=== PATIENT | male | born 1990 | race Caucasian/White ===

== ENCOUNTER 2016-09-08 02:08 | Emergency (ER) | payer MEDICAID, OTHER ==
[~2016-09-08] VITALS: Ht 188 cm; Wt 97.3 kg
[~2016-09-08 02:08] MED LIST: Bupropion Hcl PO; CLON1PAT2 TOPICAL; HAL5 PO; LORA-303 PO; MIRT15TA6 PO; MIRT30TA6 PO; PRAZ1CAP2 PO
[2016-09-08 02:15] VITALS: BP 135/74; PULSE 112; RESP 18; O2SAT 97
--- NOTE | 2016-09-08 02:34 | ED.REPORT ---
HPI-Psychiatric Illness Date of Service Sep 08, 2016 ED Provider: Dr. Daniele Gordon M.D. A 26 year old male with a history of asthma, depression, suicidal ideation, PTSD , panic disorder, and paranoid schizophrenia with previous psych admissions presents to the ED with insomnia onset four days ago. The patient also reports increased intermittent suicidal ideation without a plan. He denies current suicidal ideation or homicidal ideation. The patient occasionally experiences auditory and visual hallucinations secondary to his schizophrenia. He is not currently on any medications and has had bad experiences with Prozac and Lorazepam in the past. The patient denies cough, nausea, vomiting, diarrhea, constipation, fever, or other somatic symptoms. He has had similar symptoms in the past. Nursing Notes Stated Complaint: MENTAL HEALTH Chief Complaint: Psychiatric Complaint Nursing Notes Reviewed: Yes Allergies: Coded Allergies: fluoxetine (Verified Allergy, Severe, suicidal, 09/08/16) Scheduled ([Bupropion Hcl]) 75 MG TABLET 75 MG PO DAILY Clonidine 0.2 mg/day Patch (Catapres TTS-2) 1 Each Patch 1 PATCH TOPICAL Q7D Haloperidol (Haloperidol) 5 Mg Tablet 5 MG PO HS Lorazepam (Ativan) 1 Mg Tablet 1 MG PO TID Mirtazapine (Mirtazapine) 15 Mg Tablet 15 MG PO HS Mirtazapine (Mirtazapine) 30 Mg Tablet 30 MG PO HS Prazosin (Prazosin) 1 Mg Capsule 1 MG PO HS Quetiapine Fumarate (Seroquel) 50 Mg Tablet 50 MG PO HS General Time Seen by MD: 02:34 Chief Complaint Other (Insomnia) Hx Obtained From: Patient Arrived By: Walk-in Onset Occurred: 4 days ago Symptom Duration: Since onset Severity: Current: No pain currently Severity: Maximum: No pain Pertinent Negative: Relieved by nothing Related History: Reports: Depression, Schizophrenia Immunizations: Unknown Recent Healthcare: No recent doctor visit Similar Sx Previous: Yes Risk-Psychiatric Illness Suicide Risk Stratification RF Statements: Risk factors reviewed Past Medical History Past Medical History Depression Hx of suicidal ideation with prior admission Paranoid schizophrenia PTSD Panic disorder without agoraphobia. Reports: Asthma Past Surgical History Knee surgery Nose surgery Family History noncontributory Smoking History Current Every Day Smoker, Heavy Tobacco Smoker Social History Alcohol Use: In recovery Drug Use: THC Other Social History: Good social support, Local resident Ambulatory Status Independent Review of Systems Constitutional: Denies: Fever Respiratory: Denies: Non-productive cough GI: Denies: Constipation, Diarrhea, Nausea, Vomiting Psychiatric: Reports: Hallucinations, auditory, Hallucinations, visual, Insomnia, Suicidal ideation (Intermittent, denies currently), Denies: Homicidal ideation Complete sys rev & neg: except as marked. Physical Exam Initial Vital Signs Vital Signs (First) Date Time Temp Pulse Resp B/P Pulse Ox O2 Delivery O2 Flow Rate FiO2 09/08/16 02:15 37.5 112 18 135/74 97 Room Air Initial VS: Reviewed Head / Eyes: Atraumatic, Normocephalic ENT: Conjunctiva normal, No scleral icterus Neck: Supple, Full range of motion Cardiovascular: Regular rate & rhythm, Heart sounds normal Abdomen / GI: Soft, Non-tender Skin: Warm, Dry, No cyanosis General/Constitutional: Awake, Alert, No acute distress Quiet with poor eye contact Neurologic: Oriented X3, Speech NL, No motor deficits, No sensory deficits Psychiatric: Not suicidal, Not homicidal Abnormal Mood/Affect: Positive: Depressed Respiratory / Chest: Breath sounds = bilat, No respiratory distress Wheezing / Retractions: Positive: Wheezing moderate (Bilaterally) Interpretation & Diagnostics Lab Results Interpretation Result Diagram: 09/08/16 0310 09/08/16 0310 Test 09/08/16 03:10 White Blood Count 9.8th/mm3 (3.8-10.1) Red Blood Count 4.89mil/mm3 (4.40-5.80) Hemoglobin 14.2g/dL (13.8-17.2) Hematocrit 43.6% (41.0-50.0) Mean Corpuscular Volume 89.2fL (81-100) Mean Corpuscular Hemoglobin 29.0pg (27.0-35.0) Mean Corpuscular Hemoglobin Concent 32.6% (32.0-37.0) Red Cell Distribution Width 14.9% (12.3-15.4) Platelet Count 256bil/L (150-400) Neutrophils (%) (Auto) 61.0% (40-74) Lymphocytes (%) (Auto) 26.8% (14-46) Monocytes (%) (Auto) 10.5% (4-12) Eosinophils (%) (Auto) 0.9% (0-5) Basophils (%) (Auto) 0.7% (0-3) Sodium Level 139mEq/L (134-144) Potassium Level 3.3mEq/L (3.5-5.2) Chloride Level 100mEq/L (97-108) Carbon Dioxide Level 24mmol/L (18-29) Blood Urea Nitrogen 7mg/dL (6-20) Creatinine 0.65mg/dL (0.76-1.27) Estimat Glomerular Filtration Rate 157mL/min (>59) Glucose Level 116mg/dL (60-99) Calcium Level 9.1mg/dL (8.5-10.1) Total Bilirubin 0.5mg/dL (0.0-1.2) Aspartate Amino Transf (AST/SGOT) 16U/L (0-50) Alanine Aminotransferase (ALT/SGPT) 11U/L (0-44) Alkaline Phosphatase 59U/L (25-150) Total Protein 7.5g/dL (6.4-8.4) Albumin 3.9g/dL (3.4-5.0) Thyroid Stimulating Hormone (TSH) 1.250uIU/mL (0.450-4.500) Hold Klein Top Tube Received (Received) Re-Eval/Medical Decision Med Decision/Clinical Course 26-year-old with schizophrenia and bipolar illness, presents for insomnia primarily. He noticed low-grade suicidal ideation intermittently and not at all at present. He is not homeless and has a friend here in support. He does not feel at risk for suicide or homicide. His hallucinations are only moderate and not actually present at this moment. He is not compliant with prescribed Haldol and other meds, which she denies even being prescribed. He was offered Seroquel which she appears not to be familiar with, and took a 50 mg dose for tonight. A prescription was written. Follow up with [facility]. Source of Hx: Old records Re-Evaluation/Progress : Time of Eval: 02:49 Patient Status: Condition improved Re-Evaluation/Progress Note: Discussed with patient lab results, diagnosis, and plan for discharge. Follow-up and return to the ER instructions given. Patient agrees with plan for care and all questions were addressed. Counseled Regarding: Diagnosis, Lab results, Need for follow-up, When/why to return to ED Discharge & Departure Shift Change Sign-Out Response to Therapy: Improved Impression: Primary Impression: Suicidal ideation Additional Impression: Psychosis Psychosis type: schizophrenia Schizophrenia type: paranoid schizophrenia Qualified Code: F20.0 - Paranoid schizophrenia Disposition: Home Discharge Condition All VS Reviewed: Yes Condition: Improved Patient Instructions: Bipolar Disorder (ED) Additional Instructions: Take Seroquel nightly to help control the hallucinations and help you sleep. Call [facility] tomorrow at [phone] Ask for same-day appointment to be seen tomorrow. It is located at [address] [place] [address]. You can also call the crisis line and [phone] at any time for contact with mental health resources. Return if you are feeling uncontrollably suicidal, or have any other new symptoms of concern. Usual asthma puffer as needed for wheeze and cough. Always use with a spacer. Referrals: OTHER,PHYSICIAN (PCP) [facility] Scribe Attestation Portions of this note were transcribed by Rekha Mane. I, Dr. Gordon, personally performed the history, physical exam, and medical decision-making; I reviewed and confirmed the accuracy of the information in the transcribed note. Signed by: Polly Benitez, 09/08/2016, 04:50 copies to: [facility] Daniele Gordon MD Sep 08, 2016 02:34 REKHA MANE Sep 08, 2016 02:52
[2016-09-08] MEDS ORDERED: QUET50TA PO (02:49)
[2016-09-08] MEDS ORDERED: _Albuterol-HFA 60 Puff Inhaler INHALATION PRN (02:50)
[2016-09-08 03:16] LABS: BASOPHILS % (AUTO) 0.7 % (0-3); EOSINOPHILS % (AUTO) 0.9 % (0-5); MONOCYTES % (AUTO) 10.5 % (4-12); Mean Corpuscular Volume 89.2 fL (81-100); Platelet Count 256 bil/L (150-400)
== END 2016-09-08 04:00 | disposition home or self-care (01) ==
LOC: SED 02:13
DX: R45.851 Suicidal ideations (principal); F20.0 Paranoid schizophrenia; F43.10 Post-traumatic stress disorder, unspecified; F17.210 Nicotine dependence, cigarettes, uncomplicated

== ENCOUNTER 2016-09-08 10:04 | Inpatient (IN) | payer MEDICAID, OTHER ==
[~2016-09-08] VITALS: Ht 177.8 cm; Wt 81.0 kg
[~2016-09-08 10:04] MED LIST changes: +QUET50TA PO
[2016-09-08 10:08] VITALS: BP 127/78; PULSE 90; RESP 18; O2SAT 98
--- NOTE | 2016-09-08 10:31 | ED.REPORT ---
HPI-Psychiatric Illness Date of Service Sep 08, 2016 ED Provider: Doc,Ed A 26 year old male with a history of bipolar disorder, OCD, depression, suicidal ideations, substance abuse, and asthma, who spent the night in the hospital last night, presents to the ED with suicidal ideations with no plan onset last night. He states that he would kill himself if he left the ED. Per brother, the patient has no access to firearms. The patient also reports recent problems with his energy level, having trouble relaxing or sleeping. Last night, he had 2 hours of sleep but normally gets 6-8 hours per night. He also reports feeling tension in his left shoulder. He does not currently have a psychiatrist but has sought psychiatric help in the past. Per brother, the patient has abused prescribed psychiatric drugs given in the past. Apart from the Seroquel given in the ED, the patient is not currently taking any medications. The patient smokes marijuana and does consume alcohol, but has not had any alcoholic drinks today. He has had knee and nose surgery in the past. He was overweight when he was younger. Nursing Notes Stated Complaint: MENTAL HEALTH Chief Complaint: Psychiatric Complaint Nursing Notes Reviewed: Yes Allergies: Coded Allergies: fluoxetine (Verified Allergy, Severe, suicidal, 09/08/16) Scheduled ([Bupropion Hcl]) 75 MG TABLET 75 MG PO DAILY Clonidine 0.2 mg/day Patch (Catapres TTS-2) 1 Each Patch 1 PATCH TOPICAL Q7D Haloperidol (Haloperidol) 5 Mg Tablet 5 MG PO HS Lorazepam (Ativan) 1 Mg Tablet 1 MG PO TID Mirtazapine (Mirtazapine) 15 Mg Tablet 15 MG PO HS Mirtazapine (Mirtazapine) 30 Mg Tablet 30 MG PO HS Prazosin (Prazosin) 1 Mg Capsule 1 MG PO HS Quetiapine Fumarate (Seroquel) 50 Mg Tablet 50 MG PO HS General Time Seen by MD: 10:31 Chief Complaint Suicidal ideation Hx Obtained From: Patient, Other family... (brother) Arrived By: Walk-in Onset Occurred: 13 - 16 hours ago Symptom Duration: Since onset Recent Healthcare: Recent doctor visit (Spent last night in the hospital) Similar Sx Previous: Yes Risk-Psychiatric Illness Suicide Risk Stratification RF Statements: Risk factors N/A Past Medical History Past Medical History Depression Hx of suicidal ideation with prior admission Paranoid schizophrenia PTSD Panic disorder without agoraphobia. OCD Reports: Asthma Past Surgical History Knee surgery Nose surgery Family History noncontributory Smoking History Current Every Day Smoker, Heavy Tobacco Smoker Social History Alcohol Use: In recovery Drug Use: THC Other Social History: Good social support, Local resident Ambulatory Status Independent Review of Systems Review of Systems Note: Problems with energy level. Difficulty relaxing and sleeping. Tension in left shoulder. Psychiatric: Reports: Suicidal ideation (no plan) Complete sys rev & neg: except as marked. Physical Exam Physical Exam Notes: Initial Vital Signs Vital Signs (First) Date Time Temp Pulse Resp B/P Pulse Ox O2 Delivery O2 Flow Rate FiO2 09/08/16 10:08 36.6 90 18 127/78 98 Initial VS: Reviewed General/Constitutional: Awake Abnormal Mood/Affect: Positive: Flat affect Abnormal Thinking / Perception: Positive: Suicidal, no plan (With intention, but no plan) Head / Eyes: Normocephalic, PERRL, EOMI ENT: Atraumatic, Mucous membranes moist Respiratory / Chest: Atraumatic, Breath sounds NL, Breath sounds = bilat, No respiratory distress, No rales, No rhonchi, No wheezing Cardiovascular: Heart rate NL, Regular rhythm, Heart sounds NL, No gallop, No murmurs, No rubs Abdomen: Atraumatic, No guarding, No rebound Skin: Atraumatic, Color NL, No rash, Warm, Dry Neck: Atraumatic, Full range of motion Back: Atraumatic, Full range of motion Upper Extremity / MS: Atraumatic, Full range of motion Wrist / Hand: Atraumatic, Full range of motion Lower Extremity / Pelvis / MS: Atraumatic, Full range of motion Ankle / Foot: Atraumatic, Full range of motion Re-Eval/Medical Decision Med Decision/Clinical Course Patient reports suicidal thoughts, this is second visit 24 hours, family is with him at the bedside due to concerns that he will elope from the ER. Initially he is cooperative and agreeable to admission and through the course of the day has become less and less cooperative. I feel this patient likely should have the [facility] evaluation and probable detainment for suicidal ideations and possible imminent danger to himself. There is transferred to Dr. sal Huizar pending the [facility] evaluation. Source of Hx: Old records Discharge & Departure Impression: Primary Impression: Suicidal ideation )( Condition at Discharge: Clear for psych facility Referrals: OTHER,PHYSICIAN (PCP) Care Transferred to: [facility] Transferred at: 15:45 Polly Attestation Portions of this note were transcribed by Kin Mack. I, Dr. Patricia, personally performed the history, physical exam, and medical decision-making; I reviewed and confirmed the accuracy of the information in the transcribed note. Signed by: Polly Valverde, 09/08/2016, 1538. Andrew Patricia DO Sep 08, 2016 10:31 Kin Mack Sep 08, 2016 10:49
[2016-09-08 19:08] VITALS: BP 132/81; PULSE 83; RESP 20; O2SAT 95
[2016-09-08 19:44] LABS: BASOPHILS % (AUTO) 0.8 % (0-3); MONOCYTES % (AUTO) 10.9 % (4-12); Mean Corpuscular Hemoglobin 29.5 pg (27.0-35.0); Mean Corpuscular Volume 89.1 fL (81-100); NEUTROPHILS % (AUTO) 55.6 % (40-74); Platelet Count 286 bil/L (150-400)
[2016-09-09 00:48] VITALS: BP 132/81; PULSE 83; RESP 20; O2SAT 95
[2016-09-09] MEDS ORDERED: Alum-Mag Hydrox-Simeth 30 mL Suspension PO PRN ×2 (01:00→15:00)
[2016-09-09] MEDS ORDERED: Magnesium Hydroxide 10 mL Oral Concentration PO PRN ×2 (01:00→15:00)
[2016-09-09] MEDS ORDERED: Benzocaine-Menthol Lozenge 2/Pkg PO PRN ×2 (01:00→15:00)
--- NOTE | 2016-09-09 03:12 | NUR ---
Admission Note Pt is a 26 y/o white male admitted on an SAE from [facility] ED for grave disability and danger to self. . Pt with a previous DX of Schizophrenia who present to the ED with his brother in law for the second time in 24 hours with concerns of increasing suicidal ideation. Pt endorses SI but was unable to verbalize a plan. Pt endorses auditory hallucinations which are persistent and reports people are blocking his thoughts, making it difficult for him to speak. In ED pts thoughts were disorganized, had difficulty tracking conversation, was seen laughing inappropriately. Pt reports multiple suicide attempts with last 10/2013 but would not give details. Pt was discharged from [facility] 01/31/16, has had 2 voluntary hospitalization and 1 SAE. Pt lives in a motor home on brother-in laws parents property and is cared for by pts sister. Is not currently on any medication and has not taken medication for the past 6 months. Pts last apt was at [facility] 03/09/16. (See med reconciliation for last med list). Pt UDS + for THC, BAL is 0 Labs unremarkable. Pt reportedly in recovery from ETOH.
--- NOTE | 2016-09-09 05:16 | NUR ---
nursing, nights, 11-7 s/o- has appeared to sleep after 0130 during q 15 minute assessments. a- no apparent distress. p- monitor behavior/emotional state, quality, times and amount of sleep, use and effect of medication. mj
[2016-09-09] MEDS: LORazepam 1 mg Tablet PO PRN (09:00)
[2016-09-09 11:46] VITALS: BP 136/71; PULSE 95; RESP 16
--- NOTE | 2016-09-09 14:00 | NUR ---
Nursing Day Shift Patient having difficulty verbalizing thoughts. Pt reports anxiety and was given Ativan 1mg. When asked about hallucinations, pt states "could I do something first", then went to the window looked outside suspiciously before stating "no". Declines depression and SI/HI. Pt compliant with medications and cooperative with care.
[2016-09-09] MEDS ORDERED: LORazepam 1 mg Tablet PO PRN (15:00)
[2016-09-09] MEDS ORDERED: LORazepam 0.5 mg Tablet PO PRN (15:00)
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
--- NOTE | 2016-09-09 17:11 | NUR ---
Digital Commentator./ c.m. S.:"I have best mood that I have had in awhile." O.: met with pt. to complete Psychosocial and Treatment plan and goals. Pt. is SAE 72 hrs hold as and DTS. He had multiple hospitalizations in the past. His last hospitalization was here in January 2016. He is not connected with mental health services at this time. He was off his meds for a few months. He will be homeless at time of discharge. He lived on his xzvdrjj[place]zf[place][id number] property but he said that he won't be able to go back there. He had poor sleep, poor appetite, increased depression, AH/VH, paranoid/delusional thoughts and SI with a plan. Today he continued having SI but he was able to contract for safety. He denied HI - "they are not thoughts, just a body sensation." He admitted having AH "a little"- "like a radio". He has VH - "seeing darkness in my [id number] eyes. Just his black hole eyes." He had paranoid/delusional thoughts. He talked about getting messages from TV, books and magazines. He said that TV sent him 20% "good messages and 80% bad messages. He denied depression or anxiety at this time. He complained about feeling restless or unsettled. "It's like there is something that I have to do but I don't know what." A.: pt. is cooperative, pleasant, looks restless, internally preoccupied and responding on internal stimuli. P.: monitor behavior, monitor for safety, engage pt. in the unit activities; follow care plan.
--- NOTE | 2016-09-09 21:10 | NUR ---
OBSERVATIONS 0900 TO 2130 Pt was isolative most of the shift aside from meals. Pt was on edge after lunch and expressed some feelings of anxiety and frustration surrounding pt nicotine lozenge. Once pt was given the lozenge anxiety and frustration diminished and pt returned to room. Maintained Q15 safety checks as directed.
--- NOTE | 2016-09-10 01:44 | NUR ---
Pt asleep when justowriter operator arrived, arousable for HS meds, declined snack and went back to sleep. In no acute distress. Addendum: 09/10/16 at 0504 by JONEL FLORENCE RN Pt slept throughout the night with uninterrupted sleep. Slept approx 10.5 hours.Monitoring ongoing
[2016-09-10] MEDS: LORazepam 1 mg Tablet PO PRN (08:24)
[2016-09-10 10:30] VITALS: BP 127/77; PULSE 100; RESP 16
--- NOTE | 2016-09-10 14:09 | PCM.PNPSY ---
Subjective Date of Service Sep 10, 2016 Subjective I spent 30 minutes both reviewing his treatment plan and providing supportive and educational psychotherapy. I spent more than 50% of the time counseling the patient. I reviewed the treatment plan with the patient and discussed options available including the potential risks, benefits and side effects. Bunny reports severely high anxiety. The Staff reports that he has been isolative and is not participating well in one-to-one unit and group activities. He slept 10 hours. He denies medication side effects. Patient was able to identify his medications and what they were used to treat. He appeared to understand the need for medications by the questions he asked during our discussion. Current Medications Current Medications Haloperidol 5 mg DAILY PO Last administered on 09/10/16 08:24; Admin Dose 5 MG; Start 09/09/16 at 15:00 Lorazepam 1 mg Q4H PRN PO Last administered on 09/10/16 08:24; Admin Dose 1 MG ; Start 09/09/16 at 01:00 Mirtazapine 15 mg HS PO Last administered on 09/09/16 21:22; Admin Dose 15 MG; Start 09/09/16 at 21:00 Nicotine 1 patch Q24H TOPICAL Last administered on 09/10/16 08:24; Admin Dose 1 PATCH; Start 09/09/16 at 01:08 Nicotine Polacrilex 2 mg Q4H PRN BUCCAL Last administered on 09/08/16 22:27; Admin Dose 2 MG; Start 09/08/16 at 17:40; Stop 09/09/16 at 01:08; Status DC Nicotine Polacrilex 2 mg Q4H PRN BUCCAL Last administered on 09/10/16 08:27; Admin Dose 2 MG; Start 09/09/16 at 01:00 Quetiapine Fumarate 25 mg ONCE PO Last administered on 09/08/16 19:07; Admin Dose 25 MG; Start 09/08/16 at 18:15 Mental Status Exam Appearance: Neat/well groomed Attitude: Pleasant, Cooperative Behavior: No unusual behavior Affect: Well Modulated/Appropriate Mood: Dysthymic, Depressed, Anxious, Fearful Thought Process/Associations: Logical/Sequential, Goal Directed Speech Production: Normal Speech Rate: Normal Speech Articulation: Normal Thought Content: Negativistic, Somatic preoccupation, Suspicious Danger to Self/Suicidal Ideati: None Danger to Others: None Delusions: Paranoid (Endorses) Hallucinations: Auditory (Endorses) Consciousness: Hyper-vigilant Orientation: Person, Place, Date, Situation Memory: Grossly Intact Estimate Intellectual Function: Average Basis for IQ estimate: Awareness current events, Word use/vocabulary, Educational history Attention/Concentration & Cogn: Impaired Cognitive Testing Method: Abstract Reasoning during interview Insight: Limited Judgement: Limited Result Diagram: 09/08/16191409/08/161914 Mental Health Plan Patient is a 26-year-old, white male, who has been struggling with symptoms of schizophrenia for the past seven years. For unclear reasons, he stopped taking his medications and has not gone to his outpatient followup. They have, at [facility], dropped his case. In the past he had responded well to Haldol, Remeron, and Ativan. He is describing multiple symptoms of psychosis and is demonstrating disorganized thought and reports auditory hallucinations. He is feeling extreme anxiety and panic and seems to be self-medicating with alcohol and marijuana. Client was admitted on a 72-hour involuntary treatment hold. [place] DIAGNOSIS: [place] I. 1. Schizophrenia. 2. Posttraumatic stress disorder 3. alcohol abuse 4 cannabis abuse [place] II. Defer. [place] III. None. [place] IV Moderate. [place] V. Current Global Assessment of Functioning equal to 35. Medications Treatments Patient is being provided with a high degree of safety through the structure and active adult engagement. We will focus on developing improved coping skills and identifying stressors that may have led to current episode. We will attempt to: Integrate into therapeutic groups, milieu and individual therapy. Maintain in a closely monitored and structured unit Provide low-stimulation environment Obtain collateral data to assist in treatment planning Assess degree of lability of affect and impulse control Complete safety plan Establish a consistent sleep pattern Medication effective in stabilization of mood and/or thought process Reduce the risk of imminent harm to self and/or others by providing a safe environment Tolerates medication without side effects Patient will be on the following psychiatric medications: Haldol 5 mg at bedtime Remeron 50 mg at bedtime Ativan 0.5 3 times a day Labs: Education: Educate patient about recreational drug use as an etiology Evaluate iatrogenic drug use as an etiology Address patient's legal status Patient is on a 72 hour involuntary treatment hold for suicidal ideation. Patient will be given the opportunity to talk to her educational/development assistant and the structural drafter Sarbjit Singleton MD Sep 10, 2016 14:09
--- NOTE | 2016-09-10 14:28 | NUR ---
NURSING NOTE DAY SHIFT Mood= "not too good" Affect= anxious, isolative Behavior= visible in the DR at start of shift; social w/select peers in the a.m. and attended community meeting but then retreated to his room and rested in bed for the remainder of the day other than to come out for meals. Pt. coughing off and on in the a.m., reports it is likely due to having quit smoking in recent days. Thought processes= pt quite anxious at start of shift, requested a PRN. Pt. had difficulty identifying the source of his anxiety w/this travel writer but said "I get anxious all the time-- all the time-- it's just something that happens." Denied /. PRNs Ativan 1 mg @ 08:24
[2016-09-10] MEDS: hydrOXYzine Pamoate 25 mg Capsule PO PRN (17:28)
--- NOTE | 2016-09-10 17:51 | NUR ---
Maternity Nurse./ c.m. S.:"I feel tired and aggravated and I don't know why." O.: met with pt. in his room. He was in bed after dinner. He spent a lot of time today in his room. He complained about feeling tired. He continued having SI but he was able to contract for safety. He denied HI. He continued having AH. He rated depression at 5/10 and anxiety at 7/10. He agreed to come to the Nursing station if he didn't feel well or safe. A.: pt. is isolative, cooperative, quiet, has a flat affect and a soft voice. P.: monitor behavior, continue engaging pt. in a unit activities, follow care plan.
--- NOTE | 2016-09-10 20:29 | NUR ---
Observations 0900 to 1930 Pt affect and mood was flat, guarded, anxious and isolative at times. Pt attended community meeting. Pt speech and eye contact was ok. Pt was minimally social with staff and select peers when approached. Pt attended meals in D.R. and ate 100% of his meals. Pt maintained behavior throughout the shift. Pt was polite, pleasant and cooperative. Pt was in his room most of the afternoon sleeping. Pt took a shower and attended to ADL's. Pt was observed every 15 minutes throughout the shift as ordered. Pt is currently watching TV with peers.
--- NOTE | 2016-09-11 04:41 | NUR ---
NURS NOC 12H Mood: Anxious, depressed Affect: Appropriate Behavior: Pt up in day room, watching television with fellow pts at start of shift. Pt slept from 2129 to present. Thought Process: Linear, logical Nursing Note/PRN: zolpidem 5 mg at 2015
[2016-09-11] MEDS: LORazepam 1 mg Tablet PO PRN ×2 (10:10→18:26)
[2016-09-11 11:00] VITALS: BP 92/60; PULSE 92; RESP 14
--- NOTE | 2016-09-11 13:52 | NUR ---
nurses note 7am-7pm S)"I know I shouldn't be asking but can I have something for anxiety" O)pt reports anxiety 04/17 this am, hesitant to ask for needs with statements "I shouldn't bother you" encouraged to talk to staff and report any discomfort or problems, anxiety decreased with PRN to 01/15 which is comfortable for the patient, denies SI, no AH/VH, though states he thinks he might have some delusional thinking at times, ate meals joined community meetings, sat with peers and watched TV, goal today is "to stay positive, help my family,and stay where I am safe" good eye contact, pleasant on approach and calmer with antianxiety medication A) anxious, pleasant and cooperative, denies SI P) monitor effectiveness of medications, court on Sunday
--- NOTE | 2016-09-11 15:03 | NUR ---
Observations 0900 to 1500 Pt affect and mood was flat, anxious and isolative at times. Pt attended community meeting and set a daily goal. Pt stated that he is feeling feeling very anxious and is unable to rate his mood. Pt stated that he wants to be more positive. Pt speech and eye contact was ok. Pt was minimally social with staff and select peers when approached. Pt attended meals in D.R. and ate 100% of his meals. Pt maintained behavior throughout the shift. Pt was polite, pleasant and cooperative. Pt was in his room most of the afternoon sleeping. Pt was observed every 15 minutes throughout the shift as ordered.
--- NOTE | 2016-09-11 15:35 | PCM.PNPSY ---
Subjective Date of Service Sep 11, 2016 Subjective The patient reports the treatment team that he "wants to give you a hug but that would be weird. It feels like I am finally able to let go of the past and get into counseling." The patient reports that he feels the medications are "doing a fantastic job." He denies any side effects. Tremor noted, but no dystonia or cogwheeling on physical exam. Sleep: 8.5+ hours Appetite: "Getting back to normal." Suicidal and homicidal ideation: Reports some passive suicidal ideation this morning but denies plan or intent. Auditory hallucinations/Visual hallucinations: "They are gone." Other Psychotic Symptoms: The patient appears to have significant thought disorganization. Anxiety: "Earlier this morning, none now." Depression: "Worried about home." Current Medications Current Medications Mirtazapine 15 mg HS PO Last administered on 09/10/16t 20:15; Admin Dose 15 MG; Start 09/09/16 at 21:00 Mental Status Exam Vital Signs Vital Signs Date Time Temp Pulse Resp B/P Pulse Ox O2 Delivery O2 Flow Rate FiO2 09/11/16 11:00 36.5 92 14 92/60 Appearance: Neat/well groomed Attitude: Pleasant, Cooperative Behavior: No unusual behavior Affect: Well Modulated/Appropriate Mood: Dysthymic, Anxious Thought Process/Associations: Goal Directed (generally), Loose, Tangential Speech Production: Paucity Speech Rate: Lags/Latency Speech Articulation: Normal Thought Content: Negativistic, Somatic preoccupation, Suspicious Danger to Self/Suicidal Ideati: None Danger to Others: None Delusions: Paranoid (Endorses) Hallucinations: Auditory (Denies), Visual (Denies) Consciousness: Hyper-vigilant Orientation: Person, Place, Date, Situation Memory: Short Term Memory (Impaired) Estimate Intellectual Function: Average Basis for IQ estimate: Awareness current events, Word use/vocabulary, Educational history Attention/Concentration & Cogn: Impaired Cognitive Testing Method: Abstract Reasoning during interview Insight: Limited Judgement: Limited Result Diagram: 09/08/16191409/08/161914 Mental Health Plan Patient is a 26-year-old, white male, who has been struggling with symptoms of schizophrenia for the past seven years. The patient stopped taking his medications and has not gone to his outpatient followup. [facility] has dropped his case. In the past he had responded well to Haldol, Remeron, and Ativan. He is describing multiple symptoms of psychosis and is demonstrating disorganized thought and reports auditory hallucinations. He is feeling extreme anxiety and panic and seems to be self-medicating with alcohol and marijuana. The patient was admitted on a 72-hour involuntary treatment hold. He appears to be responding to the above mentioned treatment but is experiencing mild tremor which either may be familial or EPS related. [place] I. 1. Schizophrenia. 2. Posttraumatic stress disorder 3. Alcohol use disorder 4. Cannabis use disorder [place] II. Defer. [place] III. None acute. [place] IV Moderate. [place] V. Current Global Assessment of Functioning equal to 35. Medications Mirtazapine 15 mg nightly Haloperidol 5 mg by mouth daily Hydroxyzine 50 mg every 4 hours when necessary anxiety or agitation Lorazepam 1 mg every 4 hours when necessary anxiety or agitation Zolpidem 5-10 mg nightly when necessary insomnia Treatments 1. The patient is admitted to the inpatient unit and will be provided a safe and secure environment. 2. The patient is denying current active suicidality and is not in need of a one-to-one at this time. He is agreeing to notify us should he have any acute suicidal or homicidal thoughts. 3. The patient is encouraged to participate with group and milieu activities. 4. The patient will be seen by the treatment team on a daily basis to assess symptoms, side effects and response to treatment. 5. Haloperidol will be changed to 5 mg at bedtime. 6. Benztropine 1 mg at bedtime will be added for EPS. 7. Anticipated length of stay is 7-10 days. Jeremiah Juarez MD Sep 11, 2016 15:35
[2016-09-11 15:36] VITALS: BP 124/91; PULSE 90; RESP 17
--- NOTE | 2016-09-11 21:21 | NUR ---
Behavior Pt is cooperative and appropriate. Pt states, "I'll take my meds now" Reviewed medications with pt. Pt verbalized understanding E: Will monitor for effectiveness.
--- NOTE | 2016-09-12 02:08 | NUR ---
Observations 1900 to 0700 pt was in his room when my shift started. Pt had two visitors last night and they all seemed to enjoy the visit. Pt attended wrap up group and had some snacks before returning to his room for the night. Pt first appeared asleep at 22:00 and was observed every 15 minutes through the night as directed.
[2016-09-12] MEDS: LORazepam 1 mg Tablet PO PRN ×3 (08:31→20:25)
--- NOTE | 2016-09-12 15:19 | NUR ---
Medical Dermatologist./ c.m. S.:"I cleared house today in the morning and I wrote something. I want to read it to you." O.: met with pt. and MD together to check on pt.'s progress. He read a short poem that he made in the morning about his flashback of his father's . He talked about his father briefly after that. 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 I'm on a right medications." He "slept fantastic" last night. He denied SI/HI, denied AH/VH today, rated depression at 3/10 and anxiety at 6-7/10. He was in and out of his room playing cards with peers. He talked to his sister and he was told that he would be able to go back home if he is taking meds. He wants to follow up with [facility] after discharge from here. A.: pt. is cooperative, pleasant, looks a little brighter today, more social with peers. P.: monitor behavior, possible court tomorrow, work on Safety plan and follow up; follow care plan.
--- NOTE | 2016-09-12 15:38 | NUR ---
nursing note 7am-7pm S)"I feel like I released 23years of stuff in one letter I feel so light" O) pt c/o anxiety earlier this am given PRN with relief, states becomes paranoid with the anxiety, social on unit attended community meeting, played cards with peers, brighter affect, denies VH/AH A) decreasing anxiety, social, compliant P) court tomorrow, monitor medication effectiveness
--- NOTE | 2016-09-12 17:21 | NUR ---
Observations [id number] Pt was in the dining area upon start of shift. He continues to appear anxious. He spent more time in the common areas today. He shared with this promotion writer his desire to have [facility] help him once discharged. Pt did not attend group activities, but did walk halls at times. He is not overly social with peers, but friendly and polite upon approach. Pt attended all meals, eating 100%. He was observed every 15 minutes of shift as directed.
--- NOTE | 2016-09-12 22:16 | PCM.PNPSY ---
Subjective Date of Service Sep 12, 2016 Subjective The patient states today, "I cleared house this morning and I have something to share.." Patient reports memory of being 1 y.o. and his father dying from a heart attack and his cries summoning his mother. He reported that this was one of the most important events in his life. He is denying current side effects. Patient reports still could use a few days to further stabilize and establish outpatient plan. Reports max weight was 408 pounds at age 11 but reports weight under control for the last 10-12 years. Sleep: "fantastic" 8+ hours Appetite: More of an appetite. Suicidal and homicidal ideation: denies Auditory hallucinations:Last the day before last, hearing tapping noises. Visual hallucinations: reports recently experiencing "room shifts." Other Psychotic Symptoms: mild thought disorganization Anxiety: -01/15 Depression: 09/15, "really not that bad." Current Medications Current Medications Benztropine Mesylate 1 mg HS PO Last administered on 09/12/16 20:22; Admin Dose 1 MG; Start 09/11/16 at 21:00 Haloperidol 5 mg HS PO Last administered on 09/12/16 20:23; Admin Dose 5 MG; Start 09/11/16 at 21:00 Mental Status Exam Appearance: Neat/well groomed Attitude: Pleasant, Cooperative Behavior: No unusual behavior Affect: Well Modulated/Appropriate Mood: Dysthymic, Anxious Thought Process/Associations: Goal Directed (generally), Tangential Speech Production: Paucity Speech Rate: Lags/Latency (but less than yesterday) Speech Articulation: Normal Thought Content: Somatic preoccupation Danger to Self/Suicidal Ideati: None Danger to Others: None Hallucinations: Auditory (Denies), Visual (Denies) Consciousness: Hyper-vigilant Orientation: Person, Place, Date, Situation Memory: Short Term Memory (Impaired) Estimate Intellectual Function: Average Basis for IQ estimate: Awareness current events, Word use/vocabulary, Educational history Attention/Concentration & Cogn: Impaired Insight: Limited Judgement: Limited Result Diagram: 09/08/16191409/08/161914 Mental Health Plan Patient is a 26-year-old, white male, who has been struggling with symptoms of schizophrenia for the past seven years. The patient stopped taking his medications and has not gone to his outpatient followup. [facility] has dropped his case. In the past he had responded well to Haldol, Remeron, and Ativan. He is describing multiple symptoms of psychosis and is demonstrating disorganized thought and reports auditory hallucinations. On admission, he reported feeling extreme anxiety and panic and seemed to be self-medicating with alcohol and marijuana. The patient was admitted on a 72-hour involuntary treatment hold. He appears to be responding to the above mentioned treatment but is still showing some thought disorganization. [place] Ne[place] I. 1. Schizophrenia. 2. Posttraumatic stress disorder 3. Alcohol use disorder 4. Cannabis use disorder [place] II. Defer. [place] III. None acute. [place] IV Moderate. [place] V. Current Global Assessment of Functioning equal to 35. Medications Mirtazapine 15 mg nightly Haloperidol 5 mg by mouth daily Hydroxyzine 50 mg every 4 hours when necessary anxiety or agitation Lorazepam 1 mg every 4 hours when necessary anxiety or agitation Zolpidem 5-10 mg nightly when necessary insomnia Treatments 1. The patient is admitted to the inpatient unit and will be provided a safe and secure environment. 2. The patient is denying current active suicidality and is not in need of a one-to-one at this time. He is agreeing to notify us should he have any acute suicidal or homicidal thoughts. 3. The patient is encouraged to participate with group and milieu activities. 4. The patient will be seen by the treatment team on a daily basis to assess symptoms, side effects and response to treatment. 5. Continue current treatment 6. Anticipated length of stay is 7-10 days. Jeremiah Juarez MD Sep 12, 2016 22:16 Jeremiah Juarez MD Sep 12, 2016 22:16
--- NOTE | 2016-09-13 01:23 | NUR ---
Observations 1900 to 0700 pt was out and about more than the previous night. Pt was social with other Pt's. Pt was polite and cooperative. Pt first appeared asleep at 21:45 and was observed every 15 minutes through the night as directed.
--- NOTE | 2016-09-13 05:23 | NUR ---
Nursing Note [id number] Pt affect improved and pt noted socializing with peers in milieu. Pt up for meals and attended sandra group and snack. Upon assessment pt denied depression, SI, and anxiety. Pt maintained good eye contact and answered questions appropriately. Pt complain with HS meds and PRN Ativan 1mg given per request at HS. Pt noted asleep 2145 with 8 hr uninterrupted sleep noted. Q15 min safety checks done per protocol. no distrewss noted, WC sleep, safety, behavior
[2016-09-13] MEDS: LORazepam 1 mg Tablet PO PRN (07:44)
[2016-09-13 10:36] VITALS: BP 133/75; PULSE 99; RESP 16
--- NOTE | 2016-09-13 14:08 | NUR ---
Nursing Note [id number] Behavior, Anxiety S/O: Pt reported anxiety at 0744. Ativan 1 mg given. Pt has poor appetite. VS stable. Later in the morning pt stated he is anxious about medication changes. Pt tearful stating he has been feeling better & d/n understand why medications have been changed. Pt has used Ativan 1 mg 3 times in the past 24 hours. Staff talked with pt & able to calm pt down. A: Pt has visible s/sx of increasing anxiety. P: Provide supportive environment. Monitor medications & effects.
[2016-09-13] MEDS ORDERED: LORazepam 0.5 mg Tablet PO PRN (15:00)
--- NOTE | 2016-09-13 17:01 | PCM.PNPSY ---
Subjective Date of Service Sep 13, 2016 Subjective The patient's engaged in treatment team and reported that he had a stuffy nose for several days but it appeared to be getting better. He denied cough sore throat or other symptoms. He reported that he would like to have treatment through [facility] on a biweekly or weekly basis. He also stated that he started to read the Bible and plans to go to sabianist to help center him. Of note, the patient declined to her shirt for the evaluation with the treatment team. We discussed the difficulty of discharging him when he is using lorazepam 2-3 times per day. We discussed decreasing the as needed dose determine whether an increase in haloperidol was needed. The patient was agreeable to this plan. The patient denies side effects. Sleep: "Fantastic" Appetite: "Average" Suicidal and homicidal ideation: Denies Auditory hallucinations/Visual hallucinations: Denies Other Psychotic Symptoms: Some thought disorganization and euphoria Anxiety: "A little this morning" Depression: Denies Current Medications Current Medications Benztropine Mesylate 1 mg HS PO Last administered on 09/12/16 20:22; Admin Dose 1 MG; Start 09/11/16 at 21:00 Haloperidol 5 mg HS PO Last administered on 09/12/16 20:23; Admin Dose 5 MG; Start 09/11/16 at 21:00 Lorazepam 0.5 mg Q6 PRN PO Last administered on 09/13/16 15:21; Admin Dose 0.5 MG; Start 09/13/16 at 15:00 Mental Status Exam Vital Signs Vital Signs Date Time Temp Pulse Resp B/P Pulse Ox O2 Delivery O2 Flow Rate FiO2 09/13/16 10:36 36.4 99 16 133/75 Appearance: Neat/well groomed Attitude: Pleasant, Cooperative Behavior: No unusual behavior Affect: Well Modulated/Appropriate Mood: Dysthymic, Anxious Thought Process/Associations: Goal Directed (generally), Tangential Speech Production: Normal Speech Rate: Normal Speech Articulation: Normal Thought Content: Somatic preoccupation, Perseveration Danger to Self/Suicidal Ideati: None Danger to Others: None Hallucinations: Auditory (Denies), Visual (Denies) Consciousness: Hyper-vigilant Orientation: Person, Place, Date, Situation Memory: Short Term Memory (Impaired) Estimate Intellectual Function: Average Basis for IQ estimate: Awareness current events, Word use/vocabulary, Educational history Attention/Concentration & Cogn: Impaired Insight: Limited Judgement: Limited Result Diagram: 09/08/16191409/08/161914 Mental Health Plan Patient is a 26-year-old, white male, who has been struggling with symptoms of schizophrenia for the past seven years. The patient stopped taking his medications and has not gone to his outpatient followup. [facility] has dropped his case. In the past he had responded well to Haldol, Remeron, and Ativan. He is describing multiple symptoms of psychosis and is demonstrating disorganized thought and reports auditory hallucinations. On admission, he reported feeling extreme anxiety and panic and seemed to be self-medicating with alcohol and marijuana. The patient was admitted on a 72-hour involuntary treatment hold. He appears to be responding to the above mentioned treatment but is still showing some thought disorganization. We discussed needing to reduce his use of benzodiazepines to determine whether he needs an increase in haloperidol. [place] I. 1. Schizophrenia. 2. Posttraumatic stress disorder 3. Alcohol use disorder 4. Cannabis use disorder [place] II. Defer. [place] III. None acute. [place] IV Moderate. [place] V. Current Global Assessment of Functioning equal to 35. Medications Mirtazapine 15 mg nightly Haloperidol 5 mg by mouth daily Hydroxyzine 50 mg every 4 hours when necessary anxiety or agitation Lorazepam 1 mg every 4 hours when necessary anxiety or agitation Zolpidem 5-10 mg nightly when necessary insomnia Treatments 1. The patient is admitted to the inpatient unit and will be provided a safe and secure environment. 2. The patient is denying current active suicidality and is not in need of a one-to-one at this time. He is agreeing to notify us should he have any acute suicidal or homicidal thoughts. 3. The patient is encouraged to participate with group and milieu activities. 4. The patient will be seen by the treatment team on a daily basis to assess symptoms, side effects and response to treatment. 5. Reduce lorazepam to 0.5 mg every 4 hours when necessary anxiety. 6. Anticipated length of stay is 7-10 days. Jeremiah Juarze MD Sep 13, 2016 17:01
--- NOTE | 2016-09-13 18:49 | NUR ---
[employer] Lead/Counselor: S/O: Patient slept 8.5 hours last night as per staff. He denies S/I and H/I. He denies auditory and visual hallucinations. Depression is 0/10 and he stated that he had a little anxiety earlier this morning. Patient's family is okay with him coming back to the home upon discharge. A: Patient is cooperative, anxious, tangential, limited insight, limited judgment. P: Follow care plan, coordinate out-patient providers.
--- NOTE | 2016-09-14 03:19 | NUR ---
Nursing Note [id number] Pt up in milieu upon arrival to unit. Pt noted socializing and watching tv in milieu. Pt up for sandra group and sandra snack. Pt appeared more guarded, with little eye contact. Affect flat and pt unwilling or unable to answer or rate his anxiety, depression and SI. Pt only stated"I hope he lets me out of here soon". pt appeared agitated and requested ambien to help him sleep. Pt appeared asleep 2215. Q15 min safety checks done per protocol, no distress noted. Pt currently asleep, continuing care monitoring sleep, safety, behavior.
[2016-09-14 09:20] VITALS: BP 124/82; PULSE 110; RESP 16
--- NOTE | 2016-09-14 15:56 | NUR ---
Nursing Dayshift: S: "I'm going to talk to my cabbage salter today." O: Patient made the above subjective for his goal. He did discuss tomorrow's hearing with the public health staff nurse this afternoon. Has been up and out of his room much of the shift. Smiles on approach. Rates his mood for today at a 9/10. Eating well at meals. Shannon from [facility] called with d/c f/u information for patient. Will include on discharge instructions. A: Brighter. More interactive. P: CPOC. Monitor mood and behavior.
--- NOTE | 2016-09-14 18:05 | NUR ---
Observations [id number] Pt was asleep upon start of shift. Pt stated to this physician underwriter that "I' am so ready to go home." Pt appeared anxious regarding discharge. He did attend groups and meals, eating 100%. Pt also stated during group, "You know what? I don't feel broken anymore." Pt watched TV in the evening and was social with peers upon interaction. Pt spent less time in his room today then in previous days, but did take a few naps. Pt made a card for both his sister and his nephew. Pt was observed every 15 minutes of shift as directed.
[2016-09-14] MEDS: hydrOXYzine Pamoate 25 mg Capsule PO PRN (21:11)
--- NOTE | 2016-09-14 23:33 | PCM.PNPSY ---
Subjective Date of Service Sep 14, 2016 Subjective The patient reports today that he "feels like today is a gift." He reports that he plans to stay on his [id number] property in a trailer. We discussed the potential advantages and disadvantages to an LRO and the patient was agreeable. He denied side effects and wished the discontinuation of ativan. Sleep: 8.5 hours Appetite: "normal" Suicidal and homicidal ideation: denies Auditory hallucinations/Visual hallucinations: denies Other Psychotic Symptoms: denies paranoia Anxiety: "working on controlling my anxiety." Depression: "yes & no, starting to work past what was making me depressed." Current Medications Current Medications Lorazepam 0.5 mg Q6 PRN PO Last administered on 09/13/16t 15:21; Admin Dose 0.5 MG; Start 09/13/16 at 15:00 Mental Status Exam Appearance: Neat/well groomed Attitude: Pleasant, Cooperative Behavior: No unusual behavior Affect: Well Modulated/Appropriate Mood: Euphoric (mildly) Thought Process/Associations: Goal Directed (generally) Speech Production: Normal Speech Rate: Normal Speech Articulation: Normal Thought Content: Somatic preoccupation, Perseveration Danger to Self/Suicidal Ideati: None Danger to Others: None Hallucinations: Auditory (Denies), Visual (Denies) Consciousness: Hyper-vigilant Orientation: Person, Place, Date, Situation Memory: Short Term Memory (Impaired) Estimate Intellectual Function: Average Basis for IQ estimate: Awareness current events, Word use/vocabulary, Educational history Attention/Concentration & Cogn: Impaired Insight: Limited Judgement: Limited Result Diagram: 09/08/16191409/08/161914 Mental Health Plan Patient is a 26-year-old, white male, who has been struggling with symptoms of schizophrenia for the past seven years. The patient stopped taking his medications and has not gone to his outpatient followup. [facility] has dropped his case. In the past he had responded well to Haldol, Remeron, and Ativan. He is describing multiple symptoms of psychosis and is demonstrating disorganized thought and reports auditory hallucinations. On admission, he reported feeling extreme anxiety and panic and seemed to be self-medicating with alcohol and marijuana. The patient was admitted on a 72-hour involuntary treatment hold. He appears to be responding to the above mentioned treatment but is still showing some thought disorganization. We discussed needing to reduce his use of benzodiazepines to determine whether he needs an increase in haloperidol and he requested discontinuing lorazepam. The patient, for now, is agreeable to a LRO. [place] I. 1. Schizophrenia. 2. Posttraumatic stress disorder 3. Alcohol use disorder 4. Cannabis use disorder [place] II. Defer. [place] III. None acute. [place] IV Moderate. [place] V. Current Global Assessment of Functioning equal to 35. Medications Mirtazapine 15 mg nightly Haloperidol 5 mg by mouth daily Hydroxyzine 50 mg every 4 hours when necessary anxiety or agitation Lorazepam 1 mg every 4 hours when necessary anxiety or agitation Zolpidem 5-10 mg nightly when necessary insomnia Treatments 1. The patient is admitted to the inpatient unit and will be provided a safe and secure environment. 2. The patient is denying current active suicidality and is not in need of a one-to-one at this time. He is agreeing to notify us should he have any acute suicidal or homicidal thoughts. 3. The patient is encouraged to participate with group and milieu activities. 4. The patient will be seen by the treatment team on a daily basis to assess symptoms, side effects and response to treatment. 5. Discontinue lorazepam per patient request. 6. Anticipated length of stay is 1-3 days. Jeremiah Juarez MD Sep 14, 2016 19:24
--- NOTE | 2016-09-15 05:37 | NUR ---
nursing, nights, s/o- has appeared to sleep after 2244 during q 15 minute assessments. a- no apparent distress. Expected discharge after court today p- monitor behavior/emotional state, quality, times and amount of sleep, use and effect of medication.
[2016-09-15] MEDS: hydrOXYzine Pamoate 25 mg Capsule PO PRN (09:30)
[2016-09-15 10:20] VITALS: BP 122/81; PULSE 83; RESP 18
--- NOTE | 2016-09-15 10:56 | PCM.DIMED ---
Discharge Instructions Date of Service Sep 15, 2016 Dates of Hospitalization Sep 08, 2016 at 23:47 Discharge Diagnosis Discharge Diagnosis [place] I. 1. Schizophrenia, chronic paranoid type. 2. Posttraumatic stress disorder 3. Alcohol use disorder 4. Cannabis use disorder [place] II. Defer. [place] III. None acute. [place] IV Moderate. [place] V. Current Global Assessment of Functioning equal to 45. Diet No restrictions Activity No restrictions Patient Instructions Should you have any thoughts of harming yourself or others, please call the crisis line, your provider, 911, or go to the nearest Emergency Department. Do not change or discontinue your medications without discussing with your provider. You have been given a prescription for 30 days supply of your medication Follow-up plan Psychiatric Intake [facility] Intake on 09/19/16 at 10:00am [place] [address] [place] [id number] Jeremiah Juarez MD Sep 15, 2016 10:56
[2016-09-15] MEDS ORDERED: HAL5 PO (11:03)
[2016-09-15] MEDS ORDERED: BENZ1TAB7 PO (11:03)
[2016-09-15] MEDS ORDERED: HYDR-3797 PO (11:03)
[2016-09-15] MEDS ORDERED: MIRT15TA6 PO (11:03)
[2016-09-15] MEDS ORDERED: ZLP5T PO (11:03)
--- NOTE | 2016-09-15 12:26 | NUR ---
Nursing Discharge Note: Patient cooperative with discharge process. Acknowledges understanding of d/c instructions and has a copy with them upon leaving unit at 1215. Belongings accounted for and with patient. Prescriptions faxed to patients pharmacy at [facility]. Patient denies harmful thoughts and hallucinations at this time.
--- NOTE | 2016-09-15 15:00 | PCM.DC.MED ---
Discharge Summary Date of Service Sep 15, 2016 Dates of Hospitalization Date of Hospital Admission Sep 08, 2016 at 23:47 Date of Discharge: Sep 15, 2016 Providers: Admitting Physician: Sarbjit Singleton MD Primary Care Physician: Other,Physician Attending Physician: Sarbjit Singleton MD Diagnosis at Time of Discharge Diagnosis at Time of Discharge [place] I. 1. Schizophrenia, chronic paranoid type. 2. Posttraumatic stress disorder 3. Alcohol use disorder 4. Cannabis use disorder [place] II. Defer. [place] III. None acute. [place] IV Moderate. [place] V. Current Global Assessment of Functioning equal to 45. Brief History Per Dr. Singleton's initial history and physical: IDENTIFICATION: The patient is a 26-year-old, single, white male. He is on Social Security Disability for schizophrenia. He lives in [place]. REASON FOR ADMISSION: Client admitted on a 72-hour involuntary treatment hold for suicidal ideation and psychotic symptoms. SUMMARY OF PRESENT ILLNESS: Client presents today for evaluation and treatment of psychosis, anxiety, and suicidal ideation. I met with him for a 60-minute evaluation and reviewed course and records kept by [facility]. The patient's main issue is schizophrenia with acute psychosis. Co-occurring issues are resultant feelings of suicidal ideation and panic. The condition is chronic. It has been present for the past seven years. At present, it is of a high intensity, manifesting with psychotic symptoms of auditory hallucinations, symptoms of PTSD including an exaggerated startle response, intrusive recall of traumatic events, and a tendency to try to avoid stimuli of previous trauma. Client had been recently admitted to us in January of last year for an almost identical presentation. He came to the ER on September 08, 2016, complained of suicidal ideation or auditory hallucinations. The ER doctors were able to treat him and get him to [facility] on September 09, 2016. Went to [facility], saw them, and they sent him back to the ER where he was detained and is currently admitted. In reviewing his course, for unclear reasons, he has stopped all of his meds for the past six months. His case at [facility] was closed. He is using alcohol and marijuana. He describes multiple symptoms of depression with poor sleep, interest, guilt, energy, and now suicidal ideation. He has a plan to use a gun to kill himself, although he does not have access to a gun. He is reporting auditory hallucinations of a derogatory nature, thought blocking, and has multiple sabianism delusions. When client was on our unit last year he stabilized on a combination of Haldol,Remeron, and Ativan. Hospital Course The patient was started on a combination of Haldol 5 mg daily, Remeron 15 h.s., and Ativan 0.5 t.i.d. to target symptoms of psychosis and posttraumatic stress disorder. Although initially disorganized and somewhat euphoric, he responded quickly to medications. The patient was concerned about the use of lorazepam and so was tapered off and used hydroxyzine with good results. As the patient was experiencing daytime sedation, haloperidol was moved to bedtime with good results. He exhibited no abnormal movements but did have a significant tremor and so was treated with benztropine 1 mg at bedtime with good results. The patient was agreeable to a less restrictive order and suicidal discharged to the care of his family with follow-up with [facility]. At the time of discharge, the patient was reporting his mood was "really good." Sleep was reported as "great," 8+ hours per staff. Appetite was reported as "normal." He denied anxiety or depression. He denied auditory or visual hallucinations and any thought, intent or plan of hurting himself or others. He denied medication side effects. Exam Vital Signs (Last) Date Time Temp Pulse Resp B/P Pulse Ox O2 Delivery O2 Flow Rate FiO2 09/15/16 10:20 36.4 83 18 122/81 09/09/16 00:48 95 Room Air Exam Discharge Mental Status Exam Appearance: Neat/well groomed Attitude: Pleasant, Cooperative Behavior: No unusual behavior Affect: Well Modulated/Appropriate Mood: "Great" Thought Process/Associations: Goal Directed Speech Production: Normal Speech Rate: Normal Speech Articulation: Normal Thought Content: No unusual content Danger to Self/Suicidal Ideation: None Danger to Others: None Hallucinations: Auditory (Denies), Visual (Denies) Consciousness: Alert Orientation: Person, Place, Date, Situation Memory: Short Term Memory fair Estimate Intellectual Function: Average Basis for IQ estimate: Awareness current events, Word use/vocabulary, Educational history Attention/Concentration & Cognition: Fair Insight: Improving Judgement: Good Physical Examination: AIMS Score 0; No dystonia or cogwheeling Test 09/08/16 19:15 White Blood Count 10.0th/mm3 (3.8-10.1) Red Blood Count 4.78mil/mm3 (4.40-5.80) Hemoglobin 14.1g/dL (13.8-17.2) Hematocrit 42.6% (41.0-50.0) Mean Corpuscular Volume 89.1fL (81-100) Mean Corpuscular Hemoglobin 29.5pg (27.0-35.0) Mean Corpuscular Hemoglobin Concent 33.1% (32.0-37.0) Red Cell Distribution Width 14.8% (12.3-15.4) Platelet Count 286bil/L (150-400) Neutrophils (%) (Auto) 55.6% (40-74) Lymphocytes (%) (Auto) 30.4% (14-46) Monocytes (%) (Auto) 10.9% (4-12) Eosinophils (%) (Auto) 2.0% (0-5) Basophils (%) (Auto) 0.8% (0-3) Sodium Level 138mEq/L (134-144) Potassium Level 3.6mEq/L (3.5-5.2) Chloride Level 101mEq/L (97-108) Carbon Dioxide Level 25mmol/L (18-29) Blood Urea Nitrogen 6mg/dL (6-20) Creatinine 0.54mg/dL (0.76-1.27) Estimat Glomerular Filtration Rate 194mL/min (>59) Glucose Level 106mg/dL (60-99) Calcium Level 9.2mg/dL (8.5-10.1) Total Bilirubin 0.6mg/dL (0.0-1.2) Aspartate Amino Transf (AST/SGOT) 17U/L (0-50) Alanine Aminotransferase (ALT/SGPT) 12U/L (0-44) Alkaline Phosphatase 59U/L (25-150) Total Protein 7.6g/dL (6.4-8.4) Albumin 3.9g/dL (3.4-5.0) Thyroid Stimulating Hormone (TSH) 2.080uIU/mL (0.450-4.500) Hold Klein Top Tube Received (Received) Alcohol, Quantitative < 10mg/dL (0-10) Discharge Medications Discharge Medications Benztropine Mesylate (Benztropine Mesylate) 1 Mg Tablet 1 MG PO HS Prescribed by: TYELR JUAREZ MD Haloperidol (Haloperidol) 5 Mg Tablet 5 MG PO HS Prescribed by: TYLER JUAREZ MD Mirtazapine (Mirtazapine) 15 Mg Tablet 15 MG PO HS Prescribed by: TYLER JUAREZ MD As needed Hydroxyzine Pamoate (HydrOXYzine Pamoate) 25 Mg Capsule 50 MG PO BID PRN PRN anxiety/agitation/insomnia Prescribed by: TYLER JUAREZ MD Zolpidem (Ambien) 5 Mg Tablet 5 MG PO HS PRN PRN Insomnia Prescribed by: TYLER JUAREZ MD Followup Plan Disposition: No indication for further long term at this time, patient released from hold on a 90 day less restrictive order and will be residing with his family. The patient verbally consented to take the prescribed medications. The patient verbally expressed understanding of the risks, benefits, alternative treatment options, and risks of not taking the prescribed medication. The patient verbally expressed understanding of the medication instructions, that he will adhere to the prescribed medication, and that he will go to all aftercare scheduled appointments. Follow-up plan Psychiatric Intake [facility] on 09/19/16 at 10:00am [facility] [address] [address] Discharge Diet: No restrictions Discharge Activity: No restrictions Patient Instructions Should you have any thoughts of harming yourself or others, please call the crisis line, your provider, 911, or go to the nearest Emergency Department. Do not change or discontinue your medications without discussing with your provider. You have been given a prescription for 30 days supply of your medication Tyler Juarez MD Sep 15, 2016 15:00
== END 2016-09-15 12:15 | disposition home or self-care (01) | DRG 885 ==
LOC: SED 10:04 → MHC 23:47
PROVIDERS: ADMIT Psychiatry & Neurology Psychiatry; ATTEND Psychiatry & Neurology Psychiatry
DX: F20.0 Paranoid schizophrenia (principal); R45.851 Suicidal ideations; Z91.19 Patient's noncompliance with other medical treatment and regimen; F12.10 Cannabis abuse, uncomplicated; F17.210 Nicotine dependence, cigarettes, uncomplicated; F43.10 Post-traumatic stress disorder, unspecified; F10.10 Alcohol abuse, uncomplicated

== ENCOUNTER 2016-09-17 21:43 | Emergency (ER) | payer MEDICAID, OTHER ==
[~2016-09-17] VITALS: Ht 182.9 cm; Wt 79.5 kg
[~2016-09-17 21:43] MED LIST changes: +BENZ1TAB7 PO; -Bupropion Hcl PO; -CLON1PAT2 TOPICAL; +HYDR-3797 PO; -LORA-303 PO; -MIRT30TA6 PO; -PRAZ1CAP2 PO; -QUET50TA PO; +ZLP5T PO
--- NOTE | 2016-09-17 21:45 | ED.REPORT ---
HPI-Psychiatric Illness Date of Service Sep 17, 2016 ED Provider: Mario De Leon MD Patient is a 26 year old male with a history of paranoid schizophrenia, depression, PTSD, panic disorder, alcohol abuse, suicidal ideations with prior suicide attempt and psychiatric admissions who presents to the ED via PD after he made inappropriate statements to his brother this evening. The content of these statements is unclear, with the patient simply stating that he is "tired" . He reports that his brother brought him to the ED tonight but he is unable to clarify why. His brother reportedly brought to the patient to the ED for psychiatric evaluation, but he refused to get out of the car. His brother therefore called Police, which escorted him to the ED. Patient resisted transport but was not aggressive. Police report that he was inappropriate, confused, and that he could not care for himself. Patient denies suicidal or homicidal ideations per police. Patient is unable to provide any meaningful history at this time. Patient was most recently admitted to the [facility] at [facility] from09/08-09/15/2016 for suicidal ideations and acute psychosis, as which time he was discharge on psychiatric medications and with an intake appointment at [facility]. Prior to that time he had not taken any psychiatric medications for 6 months. Nursing Notes Stated Complaint: PSYCH EVAL Nursing Notes Reviewed: Yes Allergies: Coded Allergies: fluoxetine (Verified Allergy, Severe, suicidal, 09/08/16) Scheduled Benztropine Mesylate (Benztropine Mesylate) 1 Mg Tablet 1 MG PO HS Haloperidol (Haloperidol) 5 Mg Tablet 5 MG PO HS Mirtazapine (Mirtazapine) 15 Mg Tablet 15 MG PO HS Scheduled PRN Hydroxyzine Pamoate (HydrOXYzine Pamoate) 25 Mg Capsule 50 MG PO BID PRN PRN anxiety/agitation/insomnia Zolpidem (Ambien) 5 Mg Tablet 5 MG PO HS PRN PRN Insomnia General Time Seen by : 21:50 Chief Complaint Bizarre behavior Hx Obtained From: Police Unable to Obtain Hx: Uncooperative, Mental status Arrived By: Police, Wheelchair Onset Occurred: 1 - 4 hours ago Symptom Duration: Since onset Recent Healthcare: Recent hospitalization Similar Sx Previous: Yes Risk-Psychiatric Illness Suicide Risk Stratification Suicide Risk Factors - Adult: : Alcohol use: Previous attempt: Prior psych admission: Substance abuseNo: Access to firearms RF Statements: Risk factors reviewed Past Medical History Past Medical History Depression Hx of suicidal ideation with prior admission and attempt via hanging in 2015 Paranoid schizophrenia PTSD Panic disorder without agoraphobia. OCD Reports: Asthma Past Surgical History Knee surgery Nose surgery Family History noncontributory Smoking History Current Every Day Smoker, Heavy Tobacco Smoker Social History Alcohol Use: In recovery Drug Use: THC Other Social History: Good social support, Local resident Ambulatory Status Independent Review of Systems Unable to Obtain ROS Uncooperative, Mental status Psychiatric: Denies: Homicidal ideation, Suicidal ideation Physical Exam Initial Vital Signs Vital Signs (First) Date Time Temp Pulse Resp B/P Pulse Ox O2 Delivery O2 Flow Rate FiO2 09/17/16 21:58 36.7 100 16 137/90 100 Room Air Initial VS: Reviewed, Vital signs abnormal Head / Eyes: Atraumatic, Normocephalic, PERRL ENT: Conjunctiva normal, No scleral icterus Neck: Supple, Full range of motion Respiratory: Breath sounds normal, Clear to auscultation, No respiratory distress Cardiovascular: Regular rate & rhythm, Heart sounds normal Abdomen / GI: Soft, Non-tender Extremities: Vascular intact, Neuro intact Skin: Warm, Dry, No cyanosis General/Constitutional: Awake, Alert, No acute distress Neurologic: Oriented X3, Speech NL constant repetative leg movements Psychiatric: Not suicidal, Not homicidal Abnormal Mood/Affect: Positive: Flat affect Prolonged latency when answering questions. Inappropriate answers to questions. Interpretation & Diagnostics Lab Results Interpretation Result Diagram: 09/18/16 0349 09/18/16 0349 Test 09/18/16 01:34 09/18/16 03:49 Hold Urine Received (Received) White Blood Count 12.0th/mm3 (3.8-10.1) Red Blood Count 4.72mil/mm3 (4.40-5.80) Hemoglobin 13.6g/dL (13.8-17.2) Hematocrit 42.0% (41.0-50.0) Mean Corpuscular Volume 89.0fL (81-100) Mean Corpuscular Hemoglobin 28.8pg (27.0-35.0) Mean Corpuscular Hemoglobin Concent 32.4% (32.0-37.0) Red Cell Distribution Width 14.4% (12.3-15.4) Platelet Count 315bil/L (150-400) Neutrophils (%) (Auto) 60.3% (40-74) Lymphocytes (%) (Auto) 27.3% (14-46) Monocytes (%) (Auto) 9.6% (4-12) Eosinophils (%) (Auto) 2.1% (0-5) Basophils (%) (Auto) 0.4% (0-3) Sodium Level 139mEq/L (134-144) Potassium Level 3.3mEq/L (3.5-5.2) Chloride Level 99mEq/L (97-108) Carbon Dioxide Level 27mmol/L (18-29) Blood Urea Nitrogen 5mg/dL (6-20) Creatinine 0.60mg/dL (0.76-1.27) Estimat Glomerular Filtration Rate 172mL/min (>59) Glucose Level 107mg/dL (60-99) Calcium Level 8.8mg/dL (8.5-10.1) Total Bilirubin 0.5mg/dL (0.0-1.2) Aspartate Amino Transf (AST/SGOT) 14U/L (0-50) Alanine Aminotransferase (ALT/SGPT) 13U/L (0-44) Alkaline Phosphatase 59U/L (25-150) Total Protein 7.0g/dL (6.4-8.4) Albumin 3.8g/dL (3.4-5.0) Thyroid Stimulating Hormone (TSH) 1.820uIU/mL (0.450-4.500) Hold Klein Top Tube Received (Received) Acetaminophen Level < 15.0ug/mL Rx (10-25) Lab values outside NL range: no clinical significance. Re-Eval/Medical Decision Med Decision/Clinical Course 26-year-old male who was recently discharged from the hospital here on new medications. Per his brother he has not been able to care for himself and has been acting inappropriate, please see the history of present illness above. He was minimally cooperative, and no useful information was obtained from interviewing him. He became somewhat agitated and was given Ativan and Haldol. Labs were done for medical clearance. His care is being turned over change of shift now to Dr. Art Sharma. Source of Hx: Old records Re-Evaluation/Progress : Time of Eval: 04:35 Re-Evaluation/Progress Note: Patient continues to sleep comfortably in the ED. Discharge & Departure Shift Change Sign-Out Patient Care Transferred: Yes Discussed Complaint(s): Yes Laboratory Evaluation: Back, reviewed by me Additonal Information: Awaiting METALS SALES REPRESENTATIVE evaluation Impression: Primary Impression: Acute situational disturbance Referrals: OTHER,PHYSICIAN (PCP) Care Transferred to: Dr. Briceno Care Transferred at: 06:00 Polly Attestation Portions of this note were transcribed by Nola Senior. I, Dr. De Leon personally performed the history, physical exam and medical decision-making; I reviewed and confirmed the accuracy of the information in the transcribed note. Signed by: Polly Rodriguez, 09/17/2016 0514 copies to: FADI,PHYSICIAN Mario De Leon MD Sep 17, 2016 21:45 Nola Senior Sep 17, 2016 21:52
[2016-09-17 21:58] VITALS: BP 137/90; PULSE 100; RESP 16; O2SAT 100
[2016-09-18] MEDS ORDERED: LORazepam 2 mg Tablet ONE (01:58)
[2016-09-18] MEDS ORDERED: diphenhydrAMINE 25 mg Capsule PO ONE (01:59)
[2016-09-18 02:28] VITALS: BP 128/82; PULSE 86; RESP 16; O2SAT 99
[2016-09-18 04:16] LABS: BASOPHILS % (AUTO) 0.4 % (0-3); EOSINOPHILS % (AUTO) 2.1 % (0-5); MONOCYTES % (AUTO) 9.6 % (4-12); Mean Corpuscular Hemoglobin 28.8 pg (27.0-35.0); NEUTROPHILS % (AUTO) 60.3 % (40-74); Platelet Count 315 bil/L (150-400)
[2016-09-18 06:32] VITALS: BP 130/79; PULSE 108; RESP 16; O2SAT 100
[2016-09-18] MEDS ORDERED: LORazepam 0.5 mg Tablet PO ONE (11:10)
[2016-09-18 11:45] VITALS: BP 105/61; PULSE 104; RESP 20; O2SAT 100
[2016-09-18] MEDS ORDERED: KLO1T PO (13:49)
--- NOTE | 2016-09-18 20:45 | CONS ---
[address] [address] CONSULTATION REPORT PATIENT: MARIFER HERNANDEZ : 1990 MR#: [id number] ADMIT: 09/17/2016 JOB ID: [id number] DATE OF SERVICE: 09/18/2016 IDENTIFICATION: The patient is a 26-year-old, single, white male. He is on social security disability for schizophrenia and lives in [place]. REASON FOR CONSULTATION: Client to the ED per his brother concerned about the patient acting oddly. ED consult recommended for evaluation and recommendations. HISTORY OF PRESENT ILLNESS: The patient presented to the ED via police department after he made inappropriate statements to his brother the following evening. The contents of these statements were unclear with the patient stating that he is tired. He reported that his brother brought him to the ED. He refused to get out of the car, his brother called the police and the police escorted him to the emergency department. The patient resisted transport but was not aggressive. Police reported that he was inappropriate, confused and that he could not care for himself. When I met with the patient, he stated that he had not been taking his medications since discharge (Haldol, Remeron and Cogentin). He stated that he has continued to use marijuana. He denied suicidal or homicidal ideation. He denied psychiatric review of systems for depression, kevon, or psychosis. He is highly anxious and for unclear reasons is not taking his medications and is not following up with his outpatient appointments. MENTAL STATUS EXAMINATION: Client lying on hospital mattress. He had good eye contact. His behavior was somewhat withdrawn but otherwise calm. His attitude was cooperative and pleasant. His speech was normal rate, rhythm. Mood was anxious. Affect congruent with no emotional liability. Thought process: Client is able to relate a coherent history. He is able to appreciate simple abstractions. His thought process is goal-oriented and logical. He denies ideas of reference. He does not appear to be responding to internal stimuli. Thought content was significant for themes of feeling anxious and not knowing what to do. He denied delusions of a paranoid, persecutory, grandiose or confucianism nature. He denied auditory hallucinations. He is alert and oriented to person, place, and date. Memory and concentration were mildly impaired. Insight and judgment were mildly impaired. Impulse control was highly contained. He has a difficult time handling impulses of fear. Reality testing intact. Competence to handle current stressors appears to be at baseline. VITAL SIGNS: Within normal limits. LABS: CBC, liver function, electrolytes within normal limits. Urine tox positive for THC. ASSESSMENT: The patient is a 26-year-old, white male who has been struggling with symptoms of schizophrenia for the past seven years. For unclear reasons, he has stopped taking his medications and has not gone to outpatient followup. When he does take Haldol, Remeron and Ativan, he seems to do quite well. Since recent discharge from our unit, he reported to me that he is taking no medications and has not gone to get these medications filled. He does smoke marijuana daily and throughout the day whenever he can get it. He is denying symptoms of psychosis at this time, and did not have disorganized thought. He is feeling extreme anxiety and panic and seems to be self-medicating with a combination of alcohol and marijuana. DIAGNOSIS: 1. Schizophrenia. 2. Posttraumatic stress disorder. 3. Alcohol abuse. 4. Marijuana abuse. DIAGNOSIS: [place] IDefer. [place] IIINone. [place] IVModerate. [place] VCurrent GAF equal to 45. PLAN: Recommend client take medication as prescribed. I talked with Dr. Ashley, the ED doctor, and she agreed to write him for a one week supply benzodiazepine. Client has an appointment with [facility] tomorrow Sunday. I encouraged him to continue Haldol 5 at night, Remeron 30 at night and start Klonopin at 1 mg per day. Client to be discharged back to home today. RECOMMEND: 1. Recommend client to refrain from recreational drugs and alcohol while taking psychiatric medications. 2. Recommend client not change psychiatric medications and take as prescribed unless notified by a physician.
== END 2016-09-18 14:20 | disposition home or self-care (01) ==
LOC: SED 21:43
DX: F43.0 Acute stress reaction (principal); F20.0 Paranoid schizophrenia; F41.9 Anxiety disorder, unspecified; F12.20 Cannabis dependence, uncomplicated; J45.909 Unspecified asthma, uncomplicated; F17.200 Nicotine dependence, unspecified, uncomplicated; Z91.14 Patient's other noncompliance with medication regimen; Z88.8 Allergy status to other drugs, medicaments and biological substances
CPT/HCPCS: 36415; 80053; 82075; 84443; 85025; 99284; G0480

== ENCOUNTER 2016-10-19 12:47 | Emergency (ER) | payer MEDICAID ==
[~2016-10-19] VITALS: Ht 185.4 cm; Wt 95.8 kg
[~2016-10-19 12:47] MED LIST changes: +KLO1T PO
[2016-10-19 12:54] VITALS: BP 153/97; PULSE 91; RESP 10; O2SAT 97
[2016-10-19] MEDS ORDERED: Albuterol 2.5 mg/3 mL Inhalation Solution NEB ONE (14:20)
[2016-10-19 14:21] VITALS: BP 122/78; PULSE 88; RESP 16; O2SAT 100
[2016-10-19] MEDS ORDERED: Albuterol HFA 60 Puff 8 Gm Inhaler INHALATION ONE (14:30)
[2016-10-19 14:42] VITALS: PULSE 83; RESP 20; O2SAT 97
--- NOTE | 2016-10-19 15:10 | ED.REPORT ---
HPI-Psychiatric Illness Date of Service Oct 19, 2016 ED Provider: Kobe Cardenas MD Patient is a 26 year old male with a hx of paranoid schizophrenia, anxiety, and PTSD who presents to the ED complaining of suicidal ideation with plan to commit suicide by copping machine operator. He states "I had a really bad day and I was supposed to see my psychiatrist today but didn't go". When asked about his day he states "I started speaking my own language and my [id number] couldn't understand me. I started seeing and hearing things". When asking what he is hearing he confirms he is hearing voices and that "they say bad stuff I can't tell you". Associated symptoms include chest pain, shortness of breath, and bilateral lower extremity tremors. He denies homicidal ideations, fevers, chills, cough, or any other symptoms. He reports that he only took his anti-anxiety medication this morning but is not able to get his other medications. His psychiatrist is Beatrice Rivera at [facility]. He lives in his family's . Nursing Notes Stated Complaint: MENTAL BREAKDOWN Chief Complaint: Psychiatric Complaint Nursing Notes Reviewed: Yes Allergies: Coded Allergies: fluoxetine (Verified Allergy, Severe, suicidal, 09/08/16) Scheduled Benztropine Mesylate (Benztropine Mesylate) 1 Mg Tablet 1 MG PO HS Haloperidol (Haloperidol) 5 Mg Tablet 5 MG PO HS Haloperidol Lactate (Haldol) 5 Mg/1 Ml Ampul 5 MG PO DAILYWD Mirtazapine (Mirtazapine) 15 Mg Tablet 15 MG PO HS Scheduled PRN Clonazepam (Clonazepam) 1 Mg Tablet 1 MG PO DAILY PRN PRN For Anxiety Hydroxyzine Pamoate (HydrOXYzine Pamoate) 25 Mg Capsule 50 MG PO BID PRN PRN anxiety/agitation/insomnia Zolpidem (Ambien) 5 Mg Tablet 5 MG PO HS PRN PRN Insomnia General Time Seen by MD: 15:09 Chief Complaint Suicidal ideation Hx Obtained From: Patient Arrived By: Walk-in Risk-Psychiatric Illness Suicide Risk Stratification Suicide Risk Factors - Adult: : Previous attempt: Prior psych admission: Substance abuseNo: Access to firearms, Alcohol use RF Statements: Risk factors reviewed Past Medical History Past Medical History Depression Hx of suicidal ideation with prior admission and attempt via hanging in 2014 Paranoid schizophrenia PTSD Panic disorder without agoraphobia. OCD Reports: Asthma Past Surgical History Knee surgery Nose surgery Family History noncontributory Smoking History Current Every Day Smoker, Heavy Tobacco Smoker Social History Alcohol Use: In recovery Drug Use: THC Other Social History: Good social support, Local resident Ambulatory Status Independent Review of Systems Constitutional: Denies: Chills, Fever Respiratory: Reports: Shortness of breath, Denies: Non-productive cough Cardiovascular: Reports: Chest pain Neurologic: Reports: Shaking Psychiatric: Reports: Hallucinations, auditory, Hallucinations, visual, Suicidal ideation, Denies: Homicidal ideation Complete sys rev & neg: except as marked. Physical Exam Initial Vital Signs Vital Signs (First) Date Time Temp Pulse Resp B/P Pulse Ox O2 Delivery O2 Flow Rate FiO2 10/19/16 12:54 36.8 91 10 153/97 97 Room Air Head / Eyes: Atraumatic, Normocephalic Abdomen / GI: Soft, Non-tender, No distention Extremities: No swelling, No tenderness Skin: Warm, Dry General/Constitutional: Awake, Alert, Well developed Neurologic: Oriented X3, Speech NL MIld resting bilateral LE tremor Psychiatric: Not homicidal Abnormal Thinking / Perception: Positive: Suicidal, with plan Suicidal ideation with plan to commit suicide by copping machine operator. Reports visual and auditory hallucinations but does not appear to be responding to internal stimuli. Linear, organized, future oriented. No agitated or aggressive. Mouth: Positive: Mucous membranes dry Respiratory / Chest: Atraumatic Wheezing / Retractions: Positive: Wheezing mild (Scattered) Good air movement Interpretation & Diagnostics Lab Results Interpretation Result Diagram: 10/19/16 1620 10/19/16 1620 Test 10/19/16 16:20 10/19/16 21:15 White Blood Count 9.2th/mm3 (3.8-10.1) Red Blood Count 5.06mil/mm3 (4.40-5.80) Hemoglobin 14.7g/dL (13.8-17.2) Hematocrit 44.4% (41.0-50.0) Mean Corpuscular Volume 87.7fL (81-100) Mean Corpuscular Hemoglobin 29.1pg (27.0-35.0) Mean Corpuscular Hemoglobin Concent 33.1% (32.0-37.0) Red Cell Distribution Width 14.4% (12.3-15.4) Platelet Count 317bil/L (150-400) Neutrophils (%) (Auto) 58.4% (40-74) Lymphocytes (%) (Auto) 29.4% (14-46) Monocytes (%) (Auto) 8.5% (4-12) Eosinophils (%) (Auto) 2.7% (0-5) Basophils (%) (Auto) 0.8% (0-3) Sodium Level 135mEq/L (134-144) Potassium Level 4.2mEq/L (3.5-5.2) Chloride Level 98mEq/L (97-108) Carbon Dioxide Level 23mmol/L (18-29) Blood Urea Nitrogen 8mg/dL (6-20) Creatinine 0.63mg/dL (0.76-1.27) Estimat Glomerular Filtration Rate 162mL/min (>59) Glucose Level 111mg/dL (60-99) Calcium Level 8.9mg/dL (8.5-10.1) Total Bilirubin 0.4mg/dL (0.0-1.2) Aspartate Amino Transf (AST/SGOT) 15U/L (0-50) Alanine Aminotransferase (ALT/SGPT) 12U/L (0-44) Alkaline Phosphatase 69U/L (25-150) Total Protein 6.9g/dL (6.4-8.4) Albumin 3.7g/dL (3.4-5.0) Thyroid Stimulating Hormone (TSH) 1.710uIU/mL (0.450-4.500) Hold Klein Top Tube Received (Received) Salicylates Level < 3.0ug/mL (30-250) Acetaminophen Level < 15.0ug/mL Rx (10-25) Hold Urine Received (Received) Re-Eval/Medical Decision Med Decision/Clinical Course In summary, the patient is a 26-year-old male with past medical history significant for schizophrenia, PTSD, anxiety and asthma, who presents with suicidal ideation and plan to commit suicide by copping machine operator. He admits that he is not currently taking his medications and missed an appointment with his psychiatrist earlier today. He also complains of wheezing and requests albuterol. The patient reportedly has an LRO and has been nonadherent with this. In regards to his wheezing improved significantly after receiving an albuterol nebulizer treatment and MDI with spacer. I considered medical etiologies of the patient's symptoms including metabolic and toxicologic and none were found in our history, physical exam or lab workup. There was no indication of significant trauma on exam. No neurologic defecits to suggest INVOICE CONTROL CLERK mass. I obtained labs including CBC, CMP and UA to [facility] for organic disease. These tests were negative. I also obtained a serum ETOH level and UDS which were relatively unremarkable. Patient presents with exacerbation of their underlying mental health disorder. The patient initially made suicidal statements and was evaluated by our emergency department long term care social worker Keena Vallecillo. The [facility]den CONDE came and evaluated the patient and had a long discussion with him. Patient states that he no longer feels suicidal. He reports that he ate a cheeseburger and it made him feel much better and that he no longer has any intent of harming himself. He is linear and organized and continues to act relatively appropriately. The patient is out of his medications and arrangements are being made for him to see his outpatient mental health provider and community long term care social worker in the next week. I have given him one dose of his regularly prescribed Haldol here in the emergency room and provided him with a one-week prescription. I will not refill his benzodiazepine medications at this time. The patient continues to deny any ongoing suicidal ideation and after being thoroughly evaluated by our long term care social worker, myself and [facility] we feel that he is appropriate for close outpatient management which has been arranged. The patient remained comfortable and hemodynamically stable throughout their ED course. Prior to discharge follow-up and return precautions were reviewed in detail with the patient who verbalized understanding and agreement with the plan. The patient was discharged in stable condition. . Re-Evaluation/Progress #1: Time of Eval: 21:43 )( Re-Eval Psychiatric: No suicidal ideation Re-Evaluation/Progress Note: Patient communicates to Brenden ([facility]) that he has had a cheese burger and is no longer suicidal. He would like to go home. Re-Evaluation/Progress #2: Time of Eval: 21:52 )( Re-Eval Psychiatric: No danger to self, No danger to others, No suicidal ideation Re-Evaluation/Progress Note: Discussed plan for discharge. Patient understands and agrees with plan. All questions addressed at this time. Counseled Regarding: Diagnosis, Need for follow-up, When/why to return to ED Discharge & Departure Impression: Primary Impression: Suicidal ideation Additional Impressions: Schizophrenia Schizophrenia type: unspecified Qualified Code: F20.9 - Schizophrenia, unspecified PTSD (post-traumatic stress disorder) Anxiety Non compliance w medication regimen Auditory hallucinations Disposition: Home Discharge Condition All VS Reviewed: Yes Condition: Improved Additional Instructions: Thank you for seeking care at the emergency room. You were seen in the emergency room today for suicidal thoughts after running out of her medications. You were seen by our long term care social worker as well as Brenden, the [facility]. You have to hold us that you no longer feel suicidal.Brenden is contacting your outpatient long term care social worker to make sure that you get followed up closely in the you can get in and see your psychiatrist. You will be discharged with a prescription for a 7 day supply of your Haldol, the rest of your medications will need to be filled through your regular doctor. You should return to the ED immediately if you develop any thoughts of harming yourself/others, if you feel you are having a medical or psychiatric emergency, if you are unable to get a follow-up to you need with your long term care social worker and mental health provider, if you experience visual/auditory hallucinations, fevers , vomiting, cough, shortness of breath, chest pain, lightheadedness, weakness or any other concerning signs or symptoms. Thank you for letting us partake in your care today. Referrals: NOPCP (PCP) Scribe Attestation Portions of this note were transcribed by Chepe Taylor. I, Dr. Cardenas personally performed the history, physical exam and medical decision-making; I reviewed and confirmed the accuracy of the information in the transcribed note. Signed by: Chepe Taylor 10/19/16, 2231 Kobe Cardenas MD Oct 19, 2016 15:10 CHEPE TAYLOR Oct 19, 2016 15:44
[2016-10-19 16:30] LABS: BASOPHILS % (AUTO) 0.8 % (0-3); EOSINOPHILS % (AUTO) 2.7 % (0-5); MONOCYTES % (AUTO) 8.5 % (4-12); Mean Corpuscular Hemoglobin 29.1 pg (27.0-35.0); Mean Corpuscular Volume 87.7 fL (81-100); NEUTROPHILS % (AUTO) 58.4 % (40-74); Platelet Count 317 bil/L (150-400)
[2016-10-19] MEDS ORDERED: HALO5AMP2 PO (21:46)
[2016-10-19] MEDS ORDERED: diphenhydrAMINE 25 mg Capsule PO ONE (21:55)
== END 2016-10-19 22:23 | disposition home or self-care (01) ==
LOC: SED 12:47
DX: R45.851 Suicidal ideations (principal); F20.9 Schizophrenia, unspecified; F43.10 Post-traumatic stress disorder, unspecified; F41.9 Anxiety disorder, unspecified; R44.0 Auditory hallucinations; R07.9 Chest pain, unspecified; R06.02 Shortness of breath; R25.1 Tremor, unspecified; J45.909 Unspecified asthma, uncomplicated; F17.200 Nicotine dependence, unspecified, uncomplicated; Z91.14 Patient's other noncompliance with medication regimen; Z91.5 Personal history of self-harm; Z88.8 Allergy status to other drugs, medicaments and biological substances